=== PATIENT | male | born 1965 | race Caucasian/White ===

== ENCOUNTER 2023-09-26 06:00 | Day surgery (SDC) | payer OTHER, SELFPAY ==
[2023-09-26] VITALS (8 sets, daily range): BP systolic 157–173; BP diastolic 97–109; BMI 24.4
[2023-09-26] MEDS: CELEBREX 200 MG PO (06:37)
[2023-09-26] MEDS: NORMOSOL-R 1000 IV (06:38)
[2023-09-26] MEDS: TYLENOL 1000 MG PO (06:38)
== END 2023-09-26 09:40 | disposition home or self-care (01) ==
LOC: SDS 06:00
PROVIDERS: ATTENDING PHYSICIAN Student in an Organized Health Care Education/Training Program
DX: T84.84XA Pain due to internal orthopedic prosthetic devices, implants and grafts, initial encounter (principal); Y83.1 Surgical operation with implant of artificial internal device as the cause of abnormal reaction of the patient, or of later complication, without mention of misadventure at the time of the procedure; L97.322 Non-pressure chronic ulcer of left ankle with fat layer exposed
CPT/HCPCS: 15271; 20680; 87075; 87076; Q4104